=== PATIENT | male | born 1990 | race Caucasian/White ===

== ENCOUNTER 2020-08-29 14:31 | Inpatient (IN) | payer OTHER ==
[~2020-08-29] VITALS: Ht 188 cm; Wt 97.1 kg
[2020-08-29 15:50] LABS: HEMOGLOBIN 13.4 gm/dl (14.0-17.5); RED BLOOD COUNT 4.43 M/UL (4.20-5.50); WHITE BLOOD COUNT 15.1 K/UL (4.5-11.0)
[2020-08-29 16:15] LABS: BUN/CREATININE RATIO 24 (0-10)
[2020-08-29] MEDS ORDERED: IBUPROFEN800 MG PO (19:59)
[2020-08-30 07:02] LABS: BUN/CREATININE RATIO 17 (0-10)
[2020-08-30 09:03] LABS: HEMOGLOBIN 12.5 gm/dl (14.0-17.5); RED BLOOD COUNT 4.2 M/UL (4.20-5.50)
[2020-08-30 09:04] LABS: WHITE BLOOD COUNT 8.1 K/UL (4.5-11.0)
[2020-08-31 04:34] LABS: HEMOGLOBIN 11.1 gm/dl (14.0-17.5); RED BLOOD COUNT 3.79 M/UL (4.20-5.50); WHITE BLOOD COUNT 9.1 K/UL (4.5-11.0)
[2020-08-31 04:56] LABS: BUN/CREATININE RATIO 22 (0-10)
[2020-09-01 03:02] LABS: HEMOGLOBIN 11.2 gm/dl (14.0-17.5); RED BLOOD COUNT 3.84 M/UL (4.20-5.50)
[2020-09-01 03:10] LABS: WHITE BLOOD COUNT 6.5 K/UL (4.5-11.0)
[2020-09-01 03:20] LABS: BUN/CREATININE RATIO 17 (0-10)
[2020-09-01] MEDS ORDERED: OXYCODONE HCL5 MG PO (14:40)
[2020-09-01] MEDS ORDERED: AUGMENTIN 875-1 EACH PO (14:44)
[2020-09-01] MEDS ORDERED: NICOTINE PATCH1 EAC2 TD (14:44)
== END 2020-09-01 14:55 | disposition home health service (06) | DRG 854 ==
LOC: ER1 14:31 → M/S 17:20 → CDU 17:20 → M/S 17:20
PROVIDERS: Physician Assistant Medical; ADMIT Internal Medicine
PROC: 0J9D0ZZ Drainage of Right Upper Arm Subcutaneous Tissue and Fascia, Open Approach (ICD-10-PCS; principal; 2020-08-31)
PROC: 3E0234Z Introduction of Serum, Toxoid and Vaccine into Muscle, Percutaneous Approach (ICD-10-PCS; 2020-09-01)
DX: A41.9 Sepsis, unspecified organism (principal); L02.413 Cutaneous abscess of right upper limb; L03.113 Cellulitis of right upper limb; B95.0 Streptococcus, group A, as the cause of diseases classified elsewhere; F15.10 Other stimulant abuse, uncomplicated; F17.210 Nicotine dependence, cigarettes, uncomplicated; Z86.14 Personal history of Methicillin resistant Staphylococcus aureus infection; Z86.19 Personal history of other infectious and parasitic diseases; Z20.822 Contact with and (suspected) exposure to COVID-19; Z23 Encounter for immunization
CPT/HCPCS: 36415; 71045; 73201; 80048; 80053; 80202; 82550; 82553; 83605; 83735; 84100; 85025; 85027; 85652; 86140; 87040; 87070; 87077; 87205; 91301; 96374; 96375; 99285; C1751; J1100; J1650; J1885; J2001; J2250; J2405; J2704; J3010; J3370; J7030; J7070; J7120; U0002